=== PATIENT | female | born 1975 | race Caucasian/White ===

== ENCOUNTER → 2018-03-07 10:21 | Outpatient (REF) | payer BC, SELFPAY ==
--- NOTE | 2018-03-07 09:00 | PAPFT_PTH ---
PATIENT: Bozena Oleary LOC: [facility] U#:[id number] AGE/SX: 50/F ROOM: RE03/07/[address]: KIMBERLEE Williamson : 1975 BED: DIS: SPEC #: [id number] RECD: 03/07/18 12:50 STATUS: DAYAMI [place]ilver #: [id number] UMM: 03/07/18 09:[address]: Spring Segal DEPT: [facility] Cytology RECD BY: Aurora Marte Tissues: 1 - CX/ENDOCX FOR PAP SMEARS Procedures: PAP THIN PREP/UVM Screening HPV DNA PROBE Comments: [id number]
== END ==
LOC: LBN 10:21
PROVIDERS: PCP Nurse Practitioner Family; Visit Provider Nurse Practitioner Family
DX: Z12.4 Encounter for screening for malignant neoplasm of cervix (principal); Z11.51 Encounter for screening for human papillomavirus (HPV)
CPT/HCPCS: 88142; 87624

== ENCOUNTER 2020-03-19 20:55 | Outpatient (REF) | payer BC, SELFPAY ==
[2020-03-19 21:30] LABS: Hemoglobin A1C 5.7 % (<5.7)
[2020-03-19 21:40] LABS: Calculated LDL 115 mg/dL (<100); Cholesterol 185 mg/dL (<200); HDL Cholesterol 46 mg/dL (40-60); Triglyceride 120 mg/dL (<150)
== END 2020-03-19 21:15 ==
LOC: LBN 20:55
PROVIDERS: PCP Nurse Practitioner Family; Visit Provider Nurse Practitioner Family
DX: Z00.00 Encounter for general adult medical examination without abnormal findings (principal)
CPT/HCPCS: 80061; 83036; 84439; 84443

== ENCOUNTER 2021-03-04 02:07 | Outpatient (CLI) | payer BC, SELFPAY ==
[2021-03-04 13:21] LABS: BUN 20 mg/dL (7-18); Calcium 9.5 mg/dL (8.5-10.1); Calculated LDL 89 mg/dL (<100); Chloride 106 mmol/L (98-107); Cholesterol 154 mg/dL (<200); Estimated GFR 59.96 (mL/min/1.73m2); Glucose 77 mg/dL (74-106); HDL Cholesterol 55 mg/dL (40-60); Potassium 4.2 mmol/L (3.5-5.1); Sodium 142 mmol/L (136-145); Triglyceride 53 mg/dL (<150)
[2021-03-04 13:45] LABS: Hemoglobin A1C 5.7 % (<5.7)
== END 2021-03-04 02:08 | disposition home or self-care (01) ==
LOC: LOS 02:08
PROVIDERS: PCP Nurse Practitioner Family; Visit Provider Nurse Practitioner Family
DX: E78.5 Hyperlipidemia, unspecified (principal); R73.03 Prediabetes
CPT/HCPCS: 36415; 80048; 80061; 83036

== ENCOUNTER 2021-07-19 15:54 | Outpatient (REF) | payer BC, SELFPAY ==
[2021-07-21 07:20] LABS: Chlamydia Result Negative (Negative); GC Result Negative (Negative)
== END 2021-07-19 15:55 | disposition home or self-care (01) ==
LOC: LBN 15:54
PROVIDERS: PCP Nurse Practitioner Family; Visit Provider Obstetrics & Gynecology
DX: Z11.3 Encounter for screening for infections with a predominantly sexual mode of transmission (principal)
CPT/HCPCS: 87491; 87591

== ENCOUNTER 2021-09-19 01:02 | Outpatient (CLI) | payer BC, SELFPAY ==
--- NOTE | 2021-09-19 06:45 | DI.MAMMO_ITS ---
Exam(s) MAMMO SCREENING EXAM: MAMMO SCREENING CLINICAL HISTORY: screening,z12.39 TECHNIQUE: Mammograms were interpreted according to the usual protocol including computer analysis w [employer] CAD system, tomosynthesis and C-view imaging. COMPARISON: No exams were available for comparison. Baseline examination. FINDINGS: The breasts are composed of scattered fibroglandular densities, Breast Density category B. No suspicious masses or suspicious microcalcifications are seen. No skin thickening or abnormal axillary lymph nodes are seen. IMPRESSION: BI-RADS Category 1, Negative mammogram Yearly screening mammography is recommended. Breast Density - Category B, scattered fibroglandular densities. A negative radiographic report should not delay biopsy if a dominant or clinically suspicious mass is present. Up to ten percent of cancers are not identified on mammography. A negative report may reinforce clinical impression. Adenosis and dense breasts may obscure an underlying neoplasm. False positive reports average 6 to 10%. Patient will receive a letter notifying them of these results.
== END 2021-09-19 01:22 ==
PROVIDERS: PCP Nurse Practitioner Family; Visit Provider Nurse Practitioner Family
DX: Z12.31 Encounter for screening mammogram for malignant neoplasm of breast (principal)
CPT/HCPCS: 77063; 77067

== ENCOUNTER 2022-01-27 07:17 | Day surgery (SDC) | payer BC, SELFPAY ==
--- NOTE | 2022-01-26 16:03 | W.COLOREPORT ---
Colonoscopy Report Date of procedure: 01/27/22 Pre-op diagnosis general: crc screening Post-op diagnosis procedure note: other (normal) Surgeon: Marge Cohen Anesthesia Type: General:No Airway Estimated blood loss (mL): 0 Pathology: none sent Complications: None Disposition: same day Prep: Miralax/Dulcolax Procedure Description: After informed consent was obtained the patient was taken to the procedure room and placed in a left decubitous position. Monitors were applied and a time out was done. The patients name, date of , procedure, allergies to medications and metal in their body was reviewed. The patient was then sedated. Once sedated and comfortable a rectal exam was done. External exam was normal. No varicosities or hemorrhoids are seen today. Internal exam revealed a normal sphincter tone and no palpable masses. The scope was then introduced and retrofelexed. No internal hemorrhoids were identified. The scope was then advanced to the cecum w/out difficulty. The TI and appendiceal orifice were identified. The prep was BBPS III in all segments for a total of 9. The scope was then slowly retracted over 7 minutes back into the rectum. There are no polyps, AVMs, or diverticula visualized today. The mucosa is pink and healthy. I do not appreciate any vascular congestion today.. The scope was removed and the patient was woken up and taken back to Same day surgery in stable condition. The patient tolerated the procedure well and there were no immediate complications. Follow up: The patient should follow up in 10 years unless they develop changes in bowel habits or other new gastrointestinal complaints.
--- NOTE | 2022-01-26 16:05 | PDOC.DSDIS_ITS ---
Discharge Plan Disposition Patient Disposition: HOME Condition: Good Discharge Details Reason For Visit: colon scope Attending Provider: Marge Cohen Primary Care Provider: Spring Segal Home Meds and New Rx's Prescriptions: Continued Mirena 20 mcg/24 hours (7 yrs) 52 mg intrauterine device 1 insert Intrauterine ONCE Qty: 1 Rx Instructions: Inserted 07/05/16 multivitamin [Multi-Day] 1 EACH tablet 1 ea PO PRN ketotifen fumarate [Alaway] 10 ML drops 1 drp Ophthalmic BID Lactobacillus acidophilus 1 EACH capsule 1 ea PO PRN Discontinued bisacodyl [Dulcolax (bisacodyl)] 5 mg tablet,delayed release (DR/EC) 5 mg PO ONCE Qty: 4 0RF Rx Instructions: Take according to provider's instructions for colonoscopy prep. polyethylene glycol 3350 17 gram/dose powder 17 g PO ONCE Qty: 238 0RF Rx Instructions: To be taken as directed by prescriber's office for colonoscopy prep. Discharge Instructions Additional Instructions: DSU Colonoscopy Post- Op Instructions Instructions for Everyone who is given Anesthesia: For your safety, please do the following for the next twenty-four (24) hours: *Do Not operate a motor vehicle (car, truck, motorcycle, etc.) *Do Not drink alcoholic beverages or use any recreational drugs for the first 24 hours or while taking pain medications. The medications in your body may have a reaction that can be dangerous. *Do Not make any important decisions or sign any important papers. Findings: normal colon Follow up: Repeat in 10 yrs time 1. No lifting over 20 pounds or strenuous activity for the first 24 hours after your procedure. After 24 hours there are no restrictions on your activity but you may feel fatigued for a few days. 2. After you arrive home you may have a light meal and return to your normal diet as you can tolerate it without feeling sick to your stomach. 3. You may have a bloated, gaseous feeling in your belly (abdomen) after a colonoscopy. Passing gas and belching will help. Walking or lying down on your left side with your knees flexed may relieve the discomfort. Call the office at [phone] (Office) or [phone] (Hospital) right away if you notice any of the following: a.Vomiting of blood or ?coffee ground stools?. b.Rectal bleeding 1Tbsp, blood clots or continuous bleeding. c.Severe belly (abdominal) pain. d.A hard distended belly (abdomen) and an inability to pass gas. 4. Please don?t expect to have a normal BM (bowel movement) for 2-3 days after your procedure. 5. If there are questions regarding the findings of your procedure, please contact your doctor 6. If you are unable to contact your doctor with a problem, contact the hospital at [phone]. 7. Continue all your regular medications unless directed otherwise. I understand the above instructions and have no questions. Signature of Patient or Adult Escort Name of Responsible Adult Escort Signature of Nurse Date/Time Activity:: see above Diet:: see above Discharge Orders Discharge Orders: Discharge Order (Routine); Ordered 01/26/22 Ordered By: Marge Cohen
[2022-01-27 07:40] VITALS: BP 95/65; PULSE 80; RESP 16; TEMP 36.6; O2SAT 97
[2022-01-27] MEDS: Lactated Ringers 1,000 ML 80 ML IV (08:15)
--- NOTE | 2022-01-27 09:13 | W.ANESPRE ---
General Info Date of Service Date Performed: 01/27/22 Height: 5 ft 7 in Weight: 53.8 kg Body Mass Index (BMI): 18.6 Surgical Procedure: Operation Date: 01/27/22 08:35 Proposed Procedure Side Surgeon krystina Cohen, Meds Allergies and Home Medications Allergies Allergy/AdvReac Type Severity Reaction Status Date / Time loratadine [From Claritin] Allergy Unknown Verified 01/25/22 12:42 Home Medication Medication Instructions Recorded Lactobacillus acidophilus 100 1 ea PO PRN 02/25/15 million cell capsule ketotifen fumarate 0.025 % (0.035 1 drp ophthalmic (eye) BID 02/25/15 %) eye drops (Alaway) multivitamin (Multi-Day tablet) 1 ea PO PRN 02/25/15 levonorgestrel 20 mcg/24 hours (7 1 insert intrauterine ONCE ##1 07/19/21 yrs) 52 mg intrauterine device (Mirena) Current Visit Medications: Current Medications Generic Name Dose Route Start Last Admin Trade Name Freq PRN Reason Stop Dose Admin Hyoscyamine Sulfate 0.125 mg 01/26/22 16:02 Hyoscyamine 0.125 Mg Sl/Oral/Chew SL DIRECTED PRN Ringer's Solution 1,000 mls @ 80 mls/hr 01/27/22 06:00 01/27/22 08:15 IV 02/25/22 23:59 80 mls/hr INFUSION ARACELI Administration IV Miscellaneous Supplies 1 each 01/27/22 06:00 Iv Access IV 02/25/22 23:59 DIRECTED ARACELI Ondansetron HCl 4 mg 01/26/22 16:02 Ondansetron 4 Mg/2 Ml Vial IVP Q4H PRN PRN Nausea / Vomiting Sodium Chloride 0 ml 01/27/22 06:00 Normal Saline Flush 10 Ml Syr IV 02/25/22 23:59 PRN PRN Sodium Chloride 0 ml 01/27/22 06:00 Normal Saline 10 Ml Vial IJ 02/25/22 23:59 DIRECTED PRN Sterile Water 0 ml 01/27/22 06:00 Water,Injection,Sterile 10 Ml Vial IJ 02/25/22 23:59 DIRECTED PRN PFSH Active Problems Active Problems: Problem Status Onset Code Screening for colon cancer Z12.11 Medical History Medical History Allergic rhinitis Hyperlipidemia IUD surveillance Mirena IUD inserted 07/2021 Prediabetes Medical History Comments:: pt thinks it was versed and fentanyl that caused N/V, also issues with codeine Surgical History Surgical History (Updated 01/27/22 @ 07:57 by Latrice Hendrickson) History of wisdom tooth extraction Hx of pelvic surgery coils placed to alleviate pelvic congestion S/P nasal septoplasty (~1994) S/P tonsillectomy and adenoidectomy (~1986) Status post endovenous radiofrequency ablation (RFA) of saphenous vein (06/11/15) Right VNUS, 10 stab avulsions Tobacco Smoking/Tobacco Use Status: Never Second hand exposure: Yes (as a child) Alcohol Alcohol Intake: never Substance Use Substance use: Never Substance use type: does not use Prental History History 2 Para 2 Hx # Term Pregnancies Multiple births Hx # Pregnancies Ectopic pregnancies AB induced Hx Number of Living Children 2 AB spontaneous Vital Signs and Lab Results Vital Signs Most Recent Vital Signs in EMR: Most Recent Vital Signs Temp Pulse Resp BP Pulse Ox 36.6 C 80 16 95/65 L 97 01/27/22 07:40 01/27/22 07:40 01/27/22 07:40 01/27/22 07:40 01/27/22 07:40 Lab Results Blood Type / Crossmatch: No Data to Display Complete Blood Count: No Data to Display Complete Metabolic Panel: No Data to Display Liver Function Panel: No Data to Display Coagulation Panel: No Data to Display Cardiac Panel: No Data to Display Arterial Blood Gas: No Data to Display Venous Blood Gas: No Data to Display Pancreas Panel: No Data to Display Thyroid Panel: No Data to Display Infectious Disease: No Data to Display Blood Cultures: No Data to Display Toxicology Panel: No Data to Display Panel: No Data to Display Anesthesia Assessment and Plan Anesthesia History Personal History: PONV Family History: No Family History of Anesthesia Complications Exercise Tolerance Exercise Tolerance: Metabolic Equivalents>4 Pertinent Negatives Pertinent Negatives: No Symptoms of GERD, No Major Cardiovascular Symptoms or Complaints, No Major Pulmonary Symptoms or Complaints and No History of CVA/TIA Cardiac & Pulmonary Exam Cardiac Exam: Normal S1/S2 Heart Sounds Pulmonary Exam: Clear Bilateral Breath Sounds Implantable Cardiac Device Does patient have a Pacemaker or an ICD?: No Airway Exam Known Difficult Airway: No Mallampati Class: 1 Mouth Opening: Normal (> 3cm) Thyromental Distance: Greater than 3 cm Neck Range of Motion: Full ROM Neck Circumference: Normal Teeth Condition: Normal Dentition Airway Comments: Lower molar right broken ASA Classification ASA Score: ASA 2 Emergency Case?: No NPO Status NPO Status: NPO Clears >2 hours, Solids >8 hours Status Status: Negative HCG Anesthesia Plan Resuscitation Status: Full Code Anesthesia Technique: General Anesthesia Airway Planned: Natural Airway Monitors Used: Standard Monitors
[2022-01-27 09:14] VITALS: BMI 18.6
[2022-01-27 10:18] VITALS: BP 108/71; PULSE 68; RESP 16; TEMP 36.5; O2SAT 95
--- NOTE | 2022-01-27 10:21 | W.ANESPOSTOP ---
Postoperative Evaluation Date, Time and Location Date Performed: 01/27/22 Time Performed: 10:21 Patient Location: Day Surgery Unit Vital Signs Most Recent Imported Vital Signs: Most Recent Vital Signs Temp Pulse Resp BP Pulse Ox 36.6 C 80 16 95/65 L 97 01/27/22 07:40 01/27/22 07:40 01/27/22 07:40 01/27/22 07:40 01/27/22 07:40 Most Recent Manually Entered Vital Signs: Adult Blood Pressure: 108/71 Heart Rate: 73 Respirations: 12 Oxygen Saturation (%): 100 Temperature (C): 36.5 C Pain Score (0-10 Scale): 0 Assessment Mental Status: Awake (Alert & Oriented to Patient Baseline) Airway and Respiratory Function: Patent airway with normal (patient baseline) respiratory exam Cardiovascular Function: Hemodynamically Stable Hydration Status: Adequately Hydrated Nausea & Vomiting: No Nausea or Vomiting Pain: Pt. Denies Any Pain Peripheral Nerve Block: Patient did not receive a nerve block
[2022-01-27 10:22] VITALS: BP 108/71; PULSE 73; RESP 12; TEMPC 36.5; O2SAT 100
[2022-01-27 10:43] VITALS: BP 104/77; PULSE 74; RESP 16; TEMP 36.2; O2SAT 100
== END 2022-01-27 11:16 | disposition home or self-care (01) ==
PROVIDERS: PCP Nurse Practitioner Family; Visit Provider Surgery
PROC: 0DJD8ZZ Inspection of Lower Intestinal Tract, Via Natural or Artificial Opening Endoscopic (ICD-10-PCS; CPT 45378; principal; 2022-01-27 08:30)
DX: Z12.11 Encounter for screening for malignant neoplasm of colon (principal); R73.03 Prediabetes
CPT/HCPCS: 45378; 81025

== ENCOUNTER 2022-07-07 01:07 | Outpatient (CLI) | payer BC, SELFPAY ==
[2022-07-07 07:32] LABS: Anion Gap 3.9 mmol/L (3-11); BUN 26 mg/dL (7-18); CO2 32.1 mmol/L (21.0-32.0); CREATININE 1.1 mg/dL (0.55-1.02); Calcium 9.8 mg/dL (8.5-10.1); Chloride 101 mmol/L (98-107); Estimated GFR 62.37 (mL/min/1.73m2); Glucose 87 mg/dL (74-106); Potassium 4.1 mmol/L (3.5-5.1); Sodium 137 mmol/L (136-145)
[2022-07-07 07:46] LABS: Hemoglobin A1C 5.4 % (<5.7)
== END 2022-07-07 01:08 | disposition home or self-care (01) ==
LOC: LBO 01:08
PROVIDERS: PCP Nurse Practitioner Family; Visit Provider Nurse Practitioner Family
DX: R73.03 Prediabetes (principal)
CPT/HCPCS: 36415; 80048; 83036

== ENCOUNTER 2022-09-15 10:00 | Outpatient (REF) | payer BC, SELFPAY ==
--- NOTE | 2022-09-15 08:45 | PAPFT_PTH ---
PATIENT: Bozena Oleary LOC: [facility] U#:[id number] AGE/SX: 47/F ROOM: RE09/15/[address]: KIMBERLEE Williamson : 1975 BED: DIS: 09/15/2022 SPEC #: [id number] RECD: 09/15/22 12:55 STATUS: DAYAMI REQ #: [id number] UMM: 09/15/22 08:[address]: Spring Segal DEPT: [facility] Cytology RECD BY: Aurora Marte Tissues: 1 - CX/ENDOCX FOR PAP SMEARS Procedures: PAP THIN PREP/UVM Screening HPV DNA PROBE Comments: [id number]
== END 2022-09-15 10:01 | disposition home or self-care (01) ==
LOC: LBN 10:00
PROVIDERS: PCP Nurse Practitioner Family; Visit Provider Nurse Practitioner Family
DX: Z12.4 Encounter for screening for malignant neoplasm of cervix (principal); Z11.51 Encounter for screening for human papillomavirus (HPV)
CPT/HCPCS: 88142; 87624

== ENCOUNTER 2022-09-20 01:39 | Outpatient (CLI) | payer BC, SELFPAY ==
--- NOTE | 2022-09-20 07:45 | DI.MAMMO_ITS ---
Exam(s) MAMMO SCREENING EXAM: MAMMO SCREENING CLINICAL HISTORY: screening,Z12.39 TECHNIQUE: Bilateral full field digital CC and MLO mammographic images were obtained with 3D tomosyn thesis and utilizing computer aided detection (CAD). COMPARISON: Available for comparison. FINDINGS: Masses/Architectural Distortion: None seen. Microcalcifications: No suspicious pleomorphic-type are seen. Skin Thickening/Nipple Retraction: None. IMPRESSION: 1. No significant interval change with no specific features of malignancy noted. 2. Unless there is more urgent need, screening mammography is recommended, as per [place] [employer] guidelines. BI-RADS Category 1 - Negative Breast Density - Category B - Scattered areas of fibroglandular density Breast density category C or D implies that the patient has dense breast tissue. Dense breast tissue is very common and is not abnormal but dense breast tissue can make it harder to find cancer on a ma mmogram. Also, dense breast tissue may increase their breast cancer risk. This information about the result of the mammogram report was provided to the patient to raise their awareness. Use this report when you speak with the patient about their risks for breast cancer, which includes their family hist ory. At that time, you may recommend for more screening tests (Ultrasound or MRI) as they might be us eful based on their risk. A negative radiographic report should not delay biopsy if a dominant or clinically suspicious mass is present. Up to ten percent of cancers are not identified on mammography. A negative report may reinforce clinical impression. Adenosis and dense breasts may obscure an underlying neoplasm. False positive reports average 6 to 10%. Patient will receive a letter notifying them of these results.
== END 2022-09-20 01:59 ==
PROVIDERS: PCP Nurse Practitioner Family; Visit Provider Nurse Practitioner Family
DX: Z12.31 Encounter for screening mammogram for malignant neoplasm of breast (principal)
CPT/HCPCS: 77063; 77067

== ENCOUNTER 2025-01-05 00:04 | Outpatient (CLI) | payer BC, SELFPAY ==
--- NOTE | 2025-01-05 07:06 | DI.MAMMO_ITS ---
Exam(s) MAMMO SCREENING EXAM: MAMMO SCREENING CLINICAL HISTORY: screening,z12.39 TECHNIQUE: Bilateral full field digital CC and MLO mammographic images were obtained with 3D tomosynthesis and utilizing computer aided detection (CAD). COMPARISON: Comparison is made with prior examinations. FINDINGS: Masses/Architectural Distortion: No suspicious masses or areas of architectural distortion are present. Microcalcifications: No suspicious pleomorphic-type are seen. Skin Thickening/Nipple Retraction: None. IMPRESSION: 1. No significant interval change with no specific features of malignancy noted. 2. Unless there is more urgent need, screening mammography is recommended, as per [place] [employer] guidelines. BI-RADS Category 1 - Negative Breast Density - Category B - There are scattered areas of fibroglandular density. Breast density Category C or D implies that the patient has dense breast tissue. Dense breast tissue can make it harder to find cancer on a mammogram. Dense breast tissue is also associated with an increased risk of breast cancer. This information about the result of the mammogram report was provided to the patient to raise their awareness. Use this report when you speak with the patient about their risks for breast cancer, which includes their family history. At that time, you may recommend additional screening tests (Ultrasound or MRI) as these tests may add significant information. A negative radiographic report should not delay biopsy if a dominant or clinically suspicious mass is present. Up to ten percent of cancers are not identified on mammography. A negative report may reinforce clinical impression. Adenosis and dense breasts may obscure an underlying neoplasm. False positive reports average 6 to 10%. Patient will receive a letter notifying them of these results.
== END 2025-01-05 00:24 ==
LOC: DI 00:04
PROVIDERS: PCP Nurse Practitioner Family; Visit Provider Nurse Practitioner Family
DX: Z12.31 Encounter for screening mammogram for malignant neoplasm of breast (principal)
CPT/HCPCS: 77063; 77067

== ENCOUNTER 2025-01-05 00:40 | Outpatient (CLI) | payer BC, SELFPAY ==
[2025-01-05 07:51] LABS: HGB 14.1 g/dL (11.2-15.7); MCH 30.3 pg (27.0-33.0); MCHC 32.8 % (32.0-36.0); MCV 93 fL (80-95); MPV 9.5 fL (8.0-11.0); Platelet Count 237 10^3/uL (130-400); RBC 4.65 10^6/uL (3.93-5.22); RDW 12.3 % (11.7-14.6); RDW-SD 42.2 fL; WBC 5.57 10^3/uL (4.4-10.8)
[2025-01-05 08:12] LABS: Hemoglobin A1C 5.8 % (<5.7)
[2025-01-05 09:05] LABS: Anion Gap 5.9 mmol/L (3-11); BUN 23 mg/dL (7-18); CO2 33.1 mmol/L (21.0-32.0); CREATININE 1.2 mg/dL (0.55-1.02); Calcium 9.5 mg/dL (8.5-10.1); Calculated LDL 118 mg/dL (<100); Chloride 103 mmol/L (98-107); Cholesterol 190 mg/dL (<200); Estimated GFR 55.49 (mL/min/1.73m2); Glucose 90 mg/dL (74-106); HDL Cholesterol 60 mg/dL (>or=50); Sodium 142 mmol/L (136-145); Triglyceride 63 mg/dL (<150)
[2025-01-06 17:27] LABS: Hepatitis C Ab w Rflx HCV PCR Negative (Negative)
[2025-01-06 17:42] LABS: HIV-1/2 Ag & Ab Screen Negative (Negative)
[2025-01-06 20:02] LABS: HBs Antibody, Quant 77.3 mIU/mL (See Note); Hep B Surface Ab Positive (See Note); Hepatitis B Core Antibody Negative (Negative); Hepatitis B Surface Antigen Negative (Negative)
== END 2025-01-05 00:41 | disposition home or self-care (01) ==
LOC: LBO 00:40
PROVIDERS: PCP Nurse Practitioner Family; Visit Provider Nurse Practitioner Family
DX: Z11.59 Encounter for screening for other viral diseases (principal); Z00.00 Encounter for general adult medical examination without abnormal findings; Z11.4 Encounter for screening for human immunodeficiency virus [HIV]
CPT/HCPCS: 36415; 80048; 80061; 85027; 86704; 86706; 86803; 87340; 87389; 83036